=== PATIENT | male | born 1955 | race Two or more races ===

== ENCOUNTER 2020-07-06 07:43 | Outpatient (CLI) | payer OTHER | END 2020-07-06 08:00 | disposition home or self-care (01) | LOC: RX STUDY 07:43 | PROVIDERS: ATTEND Internal Medicine Gastroenterology | DX: K57.90 Diverticulosis of intestine, part unspecified, without perforation or abscess without bleeding (principal); K59.09 Other constipation; K56.600 Partial intestinal obstruction, unspecified as to cause ==